=== PATIENT | male | born 1945 | race Caucasian/White ===

== ENCOUNTER 2024-02-11 08:44 | Emergency (ER) | payer OTHER, BC ==
--- NOTE | 2024-02-11 09:37 | RAD REPORT ---
EXAM DESCRIPTION: RAD - Chest Single View - 02/11/2024 9:30 am CLINICAL HISTORY: COUGH Chest pain. COMPARISON: CHEST PA AND LAT 2 VIEW dated 08/10/2013 FINDINGS: Portable technique limits examination quality. The lungs are grossly clear. The heart is normal in size. No displaced fractures. IMPRESSION: No acute intrathoracic process suspected.
[2024-02-11] MEDS ORDERED: dexAMETHasone 10 MG/ML VIAL ONE (09:43)
[2024-02-11] MEDS ORDERED: NA CHLORIDE 0.9% 1,000 ML ONE (09:44)
[2024-02-11] MEDS ORDERED: DIAZEPAM 5 MG TABLET ONE (09:44)
--- NOTE | 2024-02-11 09:47 | RAD REPORT ---
EXAM DESCRIPTION: CT - Spine Lumbar Wo Con - 02/11/2024 9:37 am CLINICAL HISTORY: Radiculopathy. PAIN COMPARISON: No comparisons TECHNIQUE: Axial noncontrast CT imaging of the lumbar spine was performed with coronal and sagittal re-formatted images. All CT scans are performed using dose optimization technique as appropriate and may include automated exposure control or mA/KV adjustment according to patient size. FINDINGS: Moderate diffuse osteopenia is seen. Moderate L1 compression deformity is present with scl erosis likely subacute in timeframe. There is approximately 15-20% loss of vertebral body height. Dis c thinning with posterior osteophyte formation seen lower lumbar levels. Mild paraspinal soft tissue thickening is seen at the L1 level. Moderate lower lumbar central canal narrowing is seen. 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 No canal compromise. Most likely this fracture is acute to subacute in timeframe.
[2024-02-11 10:22] LABS: Absolute Eosinophils 0.1 K/uL (0-0.5); Absolute Lymphocytes (CBC) 0.9 K/uL (0.7-4.9); Absolute Monocytes 0.6 K/uL (0.1-1.3); Absolute Neutrophil 4.6 K/uL (1.8-8.0); Basophils % 0.7 % (0-1.3); Eosinophils % 0.9 % (0-4.4); Hematocrit 41.8 % (39.6-49.0); Hemoglobin 14.2 g/dL (13.6-17.9); Lymphocytes % 14.4 % (15.3-44.8); MCH 32.9 pg (27.0-35.0); MCV 96.7 fL (80-100); MPV 7.9 fL (7.6-11.3); Monocytes % 9.5 % (3.3-12.3); Neutrophils % 74.5 % (41.7-73.7); Nucleated Red Blood Cells % 0.6 % (0-0); Platelets 225 thou/uL (152-406); RBC Red Blood Cell Count 4.32 M/uL (4.33-5.43); Red Cell Distribution Width 14.1 % (12.1-15.2)
[2024-02-11 10:31] LABS: PT Prothrombin Time 47.4 SECONDS (9.4-12.5); Protime INR 4.42
[2024-02-11 10:36] LABS: AST/SGOT 25 U/L (15-37); Albumin 3.7 g/dL (3.4-5.0); Albumin/Globulin Ratio 0.9 (1.1-1.8); Alkaline Phosphatase 108 U/L (45-117); Anion Gap 5.1 mEq/L (5.0-15.0); BUN Blood Urea Nitrogen 20 mg/dL (7-18); Bicarbonate 33 mEq/L (21-32); Bilirubin Direct 0.3 mg/dL (0-0.2); Bilirubin Indirect, Calculated 0.8 mg/dL (0.2-0.8); Bilirubin Total 1.1 mg/dL (0.2-1.0); Globulin 3.9 g/dL (2.3-3.5); Glomerular Filtration Rate 77 ml/min (=/>90); Glucose Level 104 mg/dL (74-106); Lipase 34 U/L (13-75); Magnesium 1.9 mg/dL (1.6-2.4); NT PRO-BNP 213 pg/mL (<450); Potassium 5.1 mEq/L (3.5-5.1); Protein, Total 7.6 g/dL (6.4-8.2); Sodium Level 138 mEq/L (136-145); Troponin High Sensitivity 5.6 pg/mL (<58.9)
[2024-02-11 10:38] LABS: ALT/SGPT < 14 U/L (16-61)
--- NOTE | 2024-02-11 10:53 | EKG ---
Test Date: 2024-02-11 Test Time: 09:50:46 Pharmaceutical Specialty Representative: CONSTANTINO MEASUREMENT RESULTS: Intervals: Rate: 73 IN: 134 QRSD: 106 QT: 408 QTc: 449 [place]: P: 34 IN: 134 QRS: 15 T: 0 INTERPRETIVE STATEMENTS: Normal sinus rhythm Nonspecific ST abnormality Abnormal ECG Compared to ECG 08/10/2013 10:04:31 ST (T wave) deviation now present Electronically Signed On 02-11-24 10:53:15 CDT by Randolph Godfrey
--- NOTE | 2024-02-11 11:50 | ER ---
Nurse's Notes [facility] Name: Eusebio Castillo Age: 78 yrs Sex: Male : 1945 Arrival Date: 02/11/2024 Time: 08:44 Bed 5 Private MD: Diagnosis: Wedge compression fracture of first lumbar [id number]%;Low back pain Presentation: 02/10 08:57 Coronavirus screen: Client denies travel out of the [place] in the last 14 days. At this ll1 time, the client does not indicate any symptoms associated with coronavirus-19. Ebola Screen: Patient denies travel to an Ebola-affected area in the 21 days before illness onset. No acute neurological deficit is noted. Initial Sepsis Screen: Does the patient meet any 2 criteria? No. Patient's initial sepsis screen is negative. Does the patient have a suspected source of infection? No. Patient's initial sepsis screen is negative. Risk Assessment: Do you want to hurt yourself or someone else? Patient reports no desire to harm self or others. Onset of symptoms was February 09, 2024. 08:57 Method Of Arrival: Ambulatory ll1 08:57 Acuity: JULIA 3 ll1 09:07 Chief complaint: Patient states: Low back pain started 3 days ago after doing yard ll1 work. Today, the pain radiates down his L leg and its difficult for him to walk. Triage Assessment: 09:08 General: Appears uncomfortable, Behavior is calm, cooperative, appropriate for age. ll1 Pain: Complains of pain in low back Quality of pain is described as aching. Pain: Pain radiates to left leg. Musculoskeletal: Reports pain in low back. Stroke Activation: Symptom onset > 6 hours Physician: ED Attending; Name: ; Notified At: ; Arrived At: Physician: Mid-Level Provider; Name: ; Notified At: ; Arrived At: Physician: [not used]; Name: ; Notified At: ; Arrived At: Physician: [not used]; Name: ; Notified At: ; Arrived At: Physician: [not used]; Name: ; Notified At: ; Arrived At: Historical: - Allergies: 08:55 No Known Allergies; ll1 - PMHx: 08:55 DVT; ll1 - PSHx: 08:55 None; ll1 - Immunization history:: Adult Immunizations up to date. - Infectious Disease History:: Denies. - Social history:: Smoking status: Patient denies any tobacco usage or history of. Screenin:11 [facility] ED Fall Risk Assessment (Adult) History of falling in the last 3 months, ld1 including since admission No falls in past 3 months (0 pts) Confusion or Disorientation No (0 pts) Intoxicated or Sedated No (0 pts) Impaired Gait No (0 pts) Mobility Assist Device Used No (0 pt) Altered Elimination No (0 pt) Score/Fall Risk Level 0 - 2 = Low Risk Oriented to surroundings, Maintained a safe environment, Educated pt \T\ family on fall prevention, incl call for assistance when getting out of bed, Assessed \T\ reinforced patient's understanding of fall precautions, Provided non-skid footwear, Hourly rounding (assess needs \T\ fall precautionary measures) done, Used ambulatory aids as needed (educated on \T\ assisted with), Used gait belt as appropriate. Abuse screen: Denies threats or abuse. Denies injuries from another. Nutritional screening: No deficits noted. Tuberculosis screening: No symptoms or risk factors identified. Assessment: 10:10 General: Appears in no apparent distress. comfortable, Behavior is calm, cooperative, ld1 appropriate for age. Pain: Denies pain. Neuro: Level of Consciousness is awake, alert, obeys commands, Oriented to person, place, time, situation, Appropriate for age. Cardiovascular: Capillary refill < 3 seconds Patient's skin is warm and dry. Respiratory: Airway is patent Respiratory effort is even, unlabored. GI: Abdomen is flat, non-distended. : No signs and/or symptoms were reported regarding the genitourinary system. EENT: No signs and/or symptoms were reported regarding the EENT system. Derm: No signs and/or symptoms reported regarding the dermatologic system. Musculoskeletal: No signs and/or symptoms reported regarding the musculoskeletal system. 12:30 Reassessment: Patient appears in no apparent distress at this time. No changes from ld1 previously documented assessment. Patient and/or family updated on plan of care and expected duration. Pain level reassessed. Patient is alert, oriented x 3, equal unlabored respirations, skin warm/dry/pink. Vital Signs: 08:57 BP 96 / 57; Pulse 86; Resp 16; Temp 98.5; Pulse Ox 96% ; Weight 90.72 kg; Height 6 ft. ll1 1 in. ; Pain 9/10; 10:10 BP 114 / 80; Pulse 80; Resp 18; Pulse Ox 98% on R/A; ld1 12:30 BP 119 / 76; Pulse 74; Resp 18; Pulse Ox 100% on R/A; ld1 08:57 Body Mass Index 26.39 (90.72 kg, 185.42 cm) ll1 08:57 Pain Scale: Adult ll1 ED Course: 08:51 Patient arrived in ED. mg5 08:52 Jakob Castillo MD is Attending Physician. beto 08:58 Triage completed. ll1 08:58 Arm band placed on. ll1 09:07 Patient placed in an exam room, on a stretcher. ll1 09:19 Alice Koo, RN is Primary Nurse. ko1 09:31 XRAY Chest (1 view) In Process Unspecified. EDMS 09:36 CT Lumbar Spine Wo Con In Process Unspecified. EDMS 10:08 Basic Metabolic Panel Sent. ko1 10:08 CBC with Diff Sent. ko1 10:09 LFT's Sent. ko1 10:09 Magnesium Sent. ko1 10:09 NT PRO-BNP Sent. ko1 10:09 PT-INR Sent. ko1 10:09 Troponin HS Sent. ko1 10:09 Inserted saline lock: 20 gauge in right antecubital area, using aseptic technique. ld1 Blood collected. 10:11 Patient has correct armband on for positive identification. Placed in gown. Bed in low ld1 position. Call light in reach. Side rails up X2. case monitor on. Pulse ox on. NIBP on. Door closed. Noise minimized. Warm blanket given. 10:11 No provider procedures requiring assistance completed. ld1 11:48 Valeriy Wilcox MD is Referral Physician. beto 11:48 Sav Bolanos MD is Referral Physician. beto 12:30 IV discontinued, intact, bleeding controlled, No redness/swelling at site. ld1 Administered Medications: 09:20 CANCELLED (Duplicate Order): rocephin1 grams IV at per protocol once; Given slow IV beto push per pharmacy instructions 09:53 Drug: Diazepam PO 5 mg PO once Route: PO; ko1 10:08 Drug: NS 0.9% IV 1000 ml IV at 1 bolus Per protocol; 1000 mL bolus Route: IV; Rate: 1 ko1 bolus; Site: right antecubital; 10:08 Drug: Ketorolac IVP 15 mg IVP once Route: IVP; Site: right antecubital; ko1 10:08 Drug: Decadron - Dexamethasone IVP 10 mg IVP once Route: IVP; Site: right antecubital; ko1 Medication: 10:11 VIS not applicable for this client. ld1 Outcome: 11:49 Discharge ordered by MD. pérez 12:30 Discharged to home ambulatory, ld1 12:30 Condition: stable 12:30 Discharge instructions given to patient, Instructed on discharge instructions, follow up and referral plans. Demonstrated understanding of instructions, follow-up care, medications, Prescriptions given X 4, 12:31 Patient left the ED. ld1 Signatures: Dispatcher [employer] EDJakob Juarez MD MD cha Lewis, Lynsay, RN RN [email or web address] Judit Taylor RN RN ld1 Alice Koo RN RN ko1 Tiki Young mg5
--- NOTE | 2024-02-11 11:50 | EDPHYS ---
Physician Documentation [facility] Name: Eusebio Castillo Age: 78 yrs Sex: Male : 1945 Arrival Date: 02/11/2024 Time: 08:44 Bed 5 Private MD: Jakob Terry HPI: 02/10 11:44 This 78 yrs old Male presents to ER via Ambulatory with complaints of beto Weakness. 11:44 The patient presents to the emergency department with weakness of the left lower beto extremity. Historical: - Allergies: 08:55 No Known Allergies; ll1 - PMHx: 08:55 DVT; ll1 - PSHx: 08:55 None; ll1 - Immunization history:: Adult Immunizations up to date. - Infectious Disease History:: Denies. - Social history:: Smoking status: Patient denies any tobacco usage or history of. ROS: 11:45 Constitutional: Negative for fever, chills, and weight loss, Eyes: Negative for injury, beto pain, redness, and discharge, ENT: Negative for injury, pain, and discharge, Neck: Negative for injury, pain, and swelling, Cardiovascular: Negative for chest pain, palpitations, and edema, Respiratory: Negative for shortness of breath, cough, wheezing, and pleuritic chest pain, Abdomen/GI: Negative for abdominal pain, nausea, vomiting, diarrhea, and constipation, : Negative for injury, bleeding, discharge, and swelling, MS/Extremity: Negative for injury and deformity, Skin: Negative for injury, rash, and discoloration, Neuro: Negative for headache, weakness, numbness, tingling, and seizure, Psych: Negative for depression, anxiety, suicide ideation, homicidal ideation, and hallucinations, Allergy/Immunology: Negative for hives, rash, and allergies, Endocrine: Negative for neck swelling, polydipsia, polyuria, polyphagia, and marked weight changes, Hematologic/Lymphatic: Negative for swollen nodes, abnormal bleeding, and unusual bruising, 11:45 Back: Positive for injury or acute deformity, decreased range of motion, pain at rest, pain with movement, flank pain, radiated pain, of the lumbar area and left low back, Exam: 11:45 Constitutional: This is a well developed, well nourished patient who is awake, alert, ebto and in no acute distress. Head/Face: Normocephalic, atraumatic. Eyes: Pupils equal round and reactive to light, extra-ocular motions intact. Lids and lashes normal. Conjunctiva and sclera are non-icteric and not injected. Cornea within normal limits. Periorbital areas with no swelling, redness, or edema. ENT: Nares patent. No nasal discharge, no septal abnormalities noted. Tympanic membranes are normal and external auditory canals are clear. Oropharynx with no redness, swelling, or masses, exudates, or evidence of obstruction, uvula midline. Mucous membranes moist. Neck: Trachea midline, no thyromegaly or masses palpated, and no cervical lymphadenopathy. Supple, full range of motion without nuchal rigidity, or vertebral point tenderness. No Meningismus. Chest/axilla: Normal chest wall appearance and motion. Nontender with no deformity. No lesions are appreciated. Cardiovascular: Regular rate and rhythm with a normal S1 and S2. No gallops, murmurs, or rubs. Normal PMI, no JVD. No pulse deficits. Respiratory: Lungs have equal breath sounds bilaterally, clear to auscultation and percussion. No rales, rhonchi or wheezes noted. No increased work of breathing, no retractions or nasal flaring. Abdomen/GI: Soft, non-tender, with normal bowel sounds. No distension or tympany. No guarding or rebound. No evidence of tenderness throughout. Male : Normal genitalia with no discharge or lesions. Skin: Warm, dry with normal turgor. Normal color with no rashes, no lesions, and no evidence of cellulitis. MS/ Extremity: Pulses equal, no cyanosis. Neurovascular intact. Full, normal range of motion. Neuro: Awake and alert, GCS 15, oriented to person, place, time, and situation. Cranial nerves II-XII grossly intact. Motor strength 5/5 in all extremities. Sensory grossly intact. Cerebellar exam normal. Normal gait. Psych: Awake, alert, with orientation to person, place and time. Behavior, mood, and affect are within normal limits. 11:45 Back: pain, that is mild, that is moderate, ROM is painful, with flexion, with extension, normal spinal alignment noted, CVA tenderness, is absent, vertebral tenderness, is not appreciated, muscle spasm, is appreciated in the left low back, left mid back, right mid back and right low back, 11:54 ECG was reviewed by the Attending Physician. [facility] Vital Signs: 08:57 BP 96 / 57; Pulse 86; Resp 16; Temp 98.5; Pulse Ox 96% ; Weight 90.72 kg; Height 6 ft. ll1 1 in. ; Pain 9/10; 10:10 BP 114 / 80; Pulse 80; Resp 18; Pulse Ox 98% on R/A; ld1 12:30 BP 119 / 76; Pulse 74; Resp 18; Pulse Ox 100% on R/A; ld1 08:57 Body Mass Index 26.39 (90.72 kg, 185.42 cm) ll1 08:57 Pain Scale: Adult ll1 MDM: 08:52 Patient medically screened. beto 11:55 Differential diagnosis: arthritis, strain, fracture, sciatica, contusion, Herniated beto disc UTI. Data reviewed: vital signs, nurses notes, lab test result(s), EKG, radiologic studies, CT scan. Consideration of Admission/Observation Escalation of care including admission/observation considered. I considered the following discharge prescriptions or medication management in the emergency department Medications were administered in the Emergency Department. See MAR. Independent interpretation of the following test(s) in the Emergency Department CT Scan: My interpretation is ct lumbar. Test considered but Not performed: MRI: no mri lumbar spine. Historians other than the Patient: Spouse/Significant Other: well informed. Care significantly affected by the following chronic conditions: dvt , coumadin. Counseling: I had a detailed discussion with the patient and/or guardian regarding the historical points, exam findings, and any diagnostic results supporting the discharge/admit diagnosis, lab results, radiology results, the need for outpatient follow up, for definitive care, a family practitioner, a neurologist, a neurosurgeon. 02/10 08:53 Order name: Basic Metabolic Panel; Complete Time: 11: [facility] 02/10 08:53 Order name: CBC with Diff; Complete Time: 11: [facility] 02/10 08:53 Order name: LFT's; Complete Time: 11:[address] [facility] 02/10 08:53 Order name: Magnesium; Complete Time: 11:[address] [facility] 02/10 08:53 Order name: NT PRO-BNP; Complete Time: 11:[address] [facility] 02/10 08:53 Order name: PT-INR; Complete Time: 11: [facility] 02/10 08:53 Order name: Troponin HS; Complete Time: 11:[address] [facility] 02/10 08:53 Order name: Lipase; Complete Time: 11:[address] [facility] 02/10 08:53 Order name: XRAY Chest (1 view); Complete Time: 11:[address] [facility] 02/10 09:22 Order name: CT Lumbar Spine Wo Con; Complete Time: 11:[address] [facility] 02/10 08:53 Order name: EKG; Complete Time: 08:[address] [facility] 02/10 08:53 Order name: Cardiac monitoring; Complete Time: 09:[address] [facility] 02/10 08:53 Order name: EKG - Nurse/Tech; Complete Time: 09:[address] [facility] 02/10 08:53 Order name: IV Saline Lock; Complete Time: 10:[address] [facility] 02/10 08:53 Order name: Labs collected and sent; Complete Time: 10:[address] [facility] 02/10 08:53 Order name: O2 Per Protocol; Complete Time: 09:[address] [facility] 02/10 08:53 Order name: O2 Sat Monitoring; Complete Time: 09:[address] [facility] EC:54 Rate is 73 beats/min. Rhythm is regular. QRS [place] is Normal. CT interval is normal. QRS beto interval is normal. QT interval is normal. No Q waves. T waves are Normal. No ST changes noted. Clinical impression: NSR w/ Non-specific ST/T Changes and No evidence of ischemia. Interpreted by me. Reviewed by me. Administered Medications: 09:20 CANCELLED (Duplicate Order): rocephin1 grams IV at per protocol once; Given slow IV beto push per pharmacy instructions 09:53 Drug: Diazepam PO 5 mg PO once Route: PO; ko1 10:08 Drug: NS 0.9% IV 1000 ml IV at 1 bolus Per protocol; 1000 mL bolus Route: IV; Rate: 1 ko1 bolus; Site: right antecubital; 10:08 Drug: Ketorolac IVP 15 mg IVP once Route: IVP; Site: right antecubital; ko1 10:08 Drug: Decadron - Dexamethasone IVP 10 mg IVP once Route: IVP; Site: right antecubital; ko1 Disposition Summary: 02/11/24 11:49 Discharge Ordered Notes: Location: Home beto Problem: new beto Symptoms: have improved beto Condition: Stable beto Diagnosis - Wedge compression fracture of first lumbar vertebra - 15-20% beto - Low back pain beto Followup: beto - With: Private Physician - When: 2 - 3 days - Reason: Recheck today's complaints, Continuance of care, Re-evaluation by your physician Followup: [facility] - With: Valeriy Wilcox MD - When: 2 - 3 days - Reason: Recheck today's complaints, Re-evaluation by your physician Followup: [facility] - With: Sav Bolanos MD - When: 2 - 3 days - Reason: Recheck today's complaints, Re-evaluation by your physician Discharge Instructions: - Discharge Summary Sheet beto - Acute Back Pain, Adult beto - Musculoskeletal Pain beto - Sciatica beto - Lumbar Spine Fracture beto - Sciatica, [id number] [facility] Forms: - Medication Reconciliation Form [facility] - Antibiotic Education [facility] - Prescription Opioid Use [facility] - Patient Portal Instructions [facility] - Leadership Thank You Letter [facility] Prescriptions: - acetaminophen-codeine 300-30 mg Oral tablet - take 2 tablet ORAL route every 6 hours as needed for pain; 24 tablet; Refills: [facility] 0, Product Selection Permitted - dexamethasone 4 mg Oral tablet - take 1 tablet ORAL route once daily; 5 tablet; Refills: 0, Product Selection [facility] Permitted - Pepcid 20 mg Oral tablet - take 1 tablet ORAL route every 12 hours for 21 days; 42 tablet; Refills: 0, [facility] Product Selection Permitted - Valium 5 mg Oral Tablet - take 1 tablet ORAL route every 8 hours As needed; 20 tablet; Refills: 0, [facility] Product Selection Permitted Signatures: Dispatcher [employer] EDMS Jakob Castillo MD MD cha Lewis, Lynsay RN RN ll1 Alice Koo RN RN ko1 Corrections: (The following items were deleted from the chart) 08:54 08:54 BASIC METABOLIC PANEL+C.LAB.BRZ ordered. EDMS EDMS 08:54 08:54 CBC+H.LAB.BRZ ordered. EDMS EDMS 08:54 08:54 HEPATIC FUNCTION+C.LAB.BRZ ordered. EDMS EDMS 08:54 08:54 MAGNESIUM+C.LAB.BRZ ordered. EDMS EDMS 08:54 08:54 PROBNP+C.LAB.BRZ ordered. EDMS EDMS 08:54 08:54 PROTIME (+INR)+COAG.LAB.BRZ ordered. EDMS EDMS 08:54 08:54 Troponin High Sensitivity+C.LAB.BRZ ordered. EDMS EDMS 08:54 08:54 LIPASE+C.LAB.BRZ ordered. EDMS EDMS 08:54 08:54 Urinalysis+U.LAB.BRZ ordered. EDMS EDMS 08:54 08:54 SARS-COV-2 Antigen Rapid+I.LAB.BRZ ordered. EDMS EDMS 08:54 08:54 Influenza Screen (A \T\ B)+BA.LAB.BRZ ordered. EDMS EDMS 09:20 08:53 Rocephin IV 1 grams IV at per protocol once; Given slow IV push per pharmacy beto instructions ordered. beto 09:23 09:23 Spine Lumbar Wo Con+CT.RAD.BRZ ordered. EDMS EDMS 12:14 08:54 BLOOD CULTURE*+BA.LAB.BRZ ordered. EDMS EDMS
[2024-02-11 16:35] VITALS: BP 119/76; TEMP 98.5; O2SAT 100
== END 2024-02-11 12:31 | disposition home or self-care (01) ==
LOC: ER 08:44
DX: S32.010A Wedge compression fracture of first lumbar vertebra, initial encounter for closed fracture (principal)
CPT/HCPCS: 93005; 85025; 80048; 36415; 83735; 85610; 80076; 84484; 83690; 83880; 72131; 71045; 96375; 96374; 99285; J1100; J7030